=== PATIENT | female | born 1995 | race African-American/Black ===

== ENCOUNTER 2020-02-07 02:12 | Emergency (ER) | payer SELFPAY ==
[~2020-02-07] VITALS: Ht 162.6 cm; Wt 59.9 kg
[2020-02-07 02:25] VITALS: Ht 162.6 cm; Wt 59.9 kg
[2020-02-07 04:14] LABS: BASOPHIL % 1.3 % (0-2); PLATELET COUNT 315 x10^3mcL (130-400); RED BLOOD CELLS 3.28 M/mm3 (4.10-5.10)
[2020-02-07 04:20] LABS: RED CELL DISTRIBUTION WIDTH 19.3 % (11.5-14.5)
[2020-02-07 04:22] LABS: CALCIUM 8.9 mg/dL (8.5-10.1); CARBON DIOXIDE 26.4 mmol/L (21-32); CHLORIDE SERUM 102 mmol/L (98-107); CREATININE SERUM 0.6 mg/dL (0.6-1.0); GFR1 > 60 mL/min; GLUCOSE SERUM 90 mg/dL (74-106); POTASSIUM SERUM 3.7 mmol/L (3.5-5.1); SODIUM SERUM 135 mmol/L (136-145)
[2020-02-07 04:28] LABS: ALBUMIN 4.1 g/dL (3.4-5.0); ALKALINE PHOSPHATASE 82 U/L (46-116); ALT/SGPT 26 U/L (14-59); AST/SGOT 31 U/L (15-37); BILIRUBIN TOTAL 2.2 mg/dL (0.20-1.00); TOTAL PROTEIN, SERUM 7.9 g/dL (6.4-8.2)
[2020-02-07 07:01] VITALS: BP 93/47
== END 2020-02-07 07:01 | disposition home or self-care (01) ==
LOC: ED 02:12
PROVIDERS: Emergency Medicine
DX: D57.00 Hb-SS disease with crisis, unspecified (principal); J45.909 Unspecified asthma, uncomplicated; Z88.5 Allergy status to narcotic agent; Z88.0 Allergy status to penicillin
CPT/HCPCS: J1200; J1885; J2270; J7030